=== PATIENT | male | born 1940 | race Caucasian/White ===

== ENCOUNTER 2018-02-08 11:26 | Inpatient (IN) | payer OTHER ==
[~2018-02-08] VITALS: Ht 172.7 cm; Wt 61.0 kg
[~2018-02-08 11:26] MED LIST: AMLODIPINE BESYL5 M1 PO; ANTIVERT12.5 MG PO; BAY PO; CLINDAMYCIN150 M1 PO; DEC150 PO; FLUOXETINE40 MG PO; LAC PO; LEVAQUIN750 MG PO; LOT20 PO; NOR10 PO; RITALIN5 MG PO; TAMSULOSIN HCL0.4 MG PO; TEN50 PO; TRAZODONE HYDR100 MG PO
[2018-02-08 11:33] VITALS: Ht 172.7 cm; Wt 61.0 kg
[2018-02-08 12:11] LABS: BASOPHIL % 0.4 % (0-2); PLATELET COUNT 311 x10^3mcL (130-400); RED CELL DISTRIBUTION WIDTH 14.1 % (11.5-14.5)
[2018-02-08 12:17] LABS: ALBUMIN 3.1 g/dL (3.4-5.0); ALKALINE PHOSPHATASE 78 U/L (46-116); ALT/SGPT 14 U/L (16-63); AST/SGOT 14 U/L (15-37); BILIRUBIN TOTAL 0.4 mg/dL (0.20-1.00); CALCIUM 8.4 mg/dL (8.5-10.1); CARBON DIOXIDE 26.8 mmol/L (21-32); CHLORIDE SERUM 104 mmol/L (98-107); CREATININE SERUM 0.9 mg/dL (0.7-1.3); GLUCOSE SERUM 213 mg/dL (74-106); SODIUM SERUM 140 mmol/L (136-145); TOTAL PROTEIN, SERUM 7.2 g/dL (6.4-8.2)
[2018-02-08 12:35] LABS: FREE T4 1.03 ng/dL (0.76-1.46)
[2018-02-08 12:39] LABS: UA SPECIFIC GRAVITY 1.015 (1.005-1.035); microscopic required? YES; urine erythrocyte TRACE (NEGATIVE)
[2018-02-08] MEDS ORDERED: LOMOTIL1 TAB PO (12:47)
[2018-02-08] MEDS ORDERED: LORAZEPAM0.5 MG PO (12:49)
[2018-02-08 15:41] VITALS: BP 147/76
[2018-02-08 17:24] VITALS: BP 143/86
[2018-02-08 21:36] VITALS: BP 151/83
[2018-02-09 05:48] VITALS: BP 145/75
[2018-02-09 08:03] VITALS: BP 148/80
[2018-02-09 08:35] LABS: ALKALINE PHOSPHATASE 69 U/L (46-116); ALT/SGPT 21 U/L (16-63); AST/SGOT 12 U/L (15-37); BILIRUBIN TOTAL 0.53 mg/dL (0.20-1.00); CARBON DIOXIDE 22.8 mmol/L (21-32); CHLORIDE SERUM 104 mmol/L (98-107); CREATININE SERUM 0.8 mg/dL (0.7-1.3); GLUCOSE SERUM 109 mg/dL (74-106); MAGNESIUM 1.7 mg/dL (1.8-2.4); POTASSIUM SERUM 3.4 mmol/L (3.5-5.1); SODIUM SERUM 140 mmol/L (136-145); TOTAL PROTEIN, SERUM 6.7 g/dL (6.4-8.2)
[2018-02-09 08:40] LABS: ALBUMIN 2.9 g/dL (3.4-5.0)
[2018-02-09 08:44] LABS: BASOPHIL % 0.7 % (0-2); PLATELET COUNT 284 x10^3mcL (130-400); RED CELL DISTRIBUTION WIDTH 14.3 % (11.5-14.5)
[2018-02-09 12:17] VITALS: BP 139/73
[2018-02-09 21:00] VITALS: BP 137/67
[2018-02-10 05:17] VITALS: BP 134/71
[2018-02-10 08:11] VITALS: BP 166/88
[2018-02-10 13:00] VITALS: BP 131/75
[2018-02-10 17:22] VITALS: BP 129/75
[2018-02-10 20:45] VITALS: BP 144/74
[2018-02-11 05:41] VITALS: BP 132/72
[2018-02-11 07:44] LABS: CALCIUM 8.2 mg/dL (8.5-10.1); CARBON DIOXIDE 23.8 mmol/L (21-32); CHLORIDE SERUM 108 mmol/L (98-107); CREATININE SERUM 0.9 mg/dL (0.7-1.3); GLUCOSE SERUM 98 mg/dL (74-106); MAGNESIUM 1.9 mg/dL (1.8-2.4); POTASSIUM SERUM 3.4 mmol/L (3.5-5.1); SODIUM SERUM 139 mmol/L (136-145)
[2018-02-11 08:37] LABS: BASOPHIL % 0.5 % (0-2); PLATELET COUNT 252 x10^3mcL (130-400); RED CELL DISTRIBUTION WIDTH 14.1 % (11.5-14.5)
[2018-02-11 09:05] VITALS: BP 130/59
[2018-02-11] MEDS ORDERED: FLA500 PO (10:17)
[2018-02-11 11:12] VITALS: BP 130/59
== END 2018-02-11 15:30 | disposition home health service (06) | DRG 392 ==
LOC: ED 11:26 → MU 13:54
PROVIDERS: Emergency Medicine; Internal Medicine Pulmonary Disease
DX: A08.39 Other viral enteritis (principal); E46 Unspecified protein-calorie malnutrition; E86.0 Dehydration; E87.6 Hypokalemia; I10 Essential (primary) hypertension; N40.0 Benign prostatic hyperplasia without lower urinary tract symptoms; F32.9 Major depressive disorder, single episode, unspecified; Z68.21 Body mass index [BMI] 21.0-21.9, adult; Z85.520 Personal history of malignant carcinoid tumor of kidney; Z79.82 Long term (current) use of aspirin
CPT/HCPCS: 83880; 84439; 97110-GP; 97116-GP; 97530-GP; 97535-GP; J1644; J3475; J3490; J7050; J7120; Q0092

== ENCOUNTER 2018-02-13 14:41 | Inpatient (IN) | payer OTHER ==
[~2018-02-13] VITALS: Ht 175.3 cm; Wt 69.0 kg
[~2018-02-13 14:41] MED LIST changes: +FLA500 PO; +LOMOTIL1 TAB PO; +LORAZEPAM0.5 MG PO
[2018-02-13 16:12] LABS: BASOPHIL % 0.4 % (0-2); PLATELET COUNT 292 x10^3mcL (130-400)
[2018-02-13 16:15] LABS: RED CELL DISTRIBUTION WIDTH 14.7 % (11.5-14.5)
[2018-02-13 16:25] LABS: ALKALINE PHOSPHATASE 61 U/L (46-116); ALT/SGPT 64 U/L (16-63); AMYLASE 47 U/L (25-115); AST/SGOT 55 U/L (15-37); BILIRUBIN TOTAL 0.3 mg/dL (0.20-1.00); CALCIUM 8.8 mg/dL (8.5-10.1); CARBON DIOXIDE 20.2 mmol/L (21-32); CHLORIDE SERUM 104 mmol/L (98-107); CREATININE SERUM 0.9 mg/dL (0.7-1.3); GLUCOSE SERUM 151 mg/dL (74-106); LIPASE 191 IU/L (73-393); SODIUM SERUM 139 mmol/L (136-145); TOTAL PROTEIN, SERUM 6.8 g/dL (6.4-8.2)
[2018-02-13 16:28] LABS: ALBUMIN 3.1 g/dL (3.4-5.0); POTASSIUM SERUM 2.9 mmol/L (3.5-5.1)
[2018-02-13 20:46] VITALS: BP 183/89
[2018-02-14 06:51] VITALS: BP 165/84
[2018-02-14 07:30] LABS: BASOPHIL % 0.2 % (0-2); PLATELET COUNT 286 x10^3mcL (130-400); RED CELL DISTRIBUTION WIDTH 14.5 % (11.5-14.5)
[2018-02-14 07:59] LABS: CALCIUM 8.2 mg/dL (8.5-10.1); CARBON DIOXIDE 23.1 mmol/L (21-32); CHLORIDE SERUM 104 mmol/L (98-107); CREATININE SERUM 0.8 mg/dL (0.7-1.3); GLUCOSE SERUM 112 mg/dL (74-106); MAGNESIUM 2.1 mg/dL (1.8-2.4); SODIUM SERUM 140 mmol/L (136-145)
[2018-02-14 08:02] LABS: POTASSIUM SERUM 2.7 mmol/L (3.5-5.1)
[2018-02-14 08:14] VITALS: BP 162/78
[2018-02-14 09:35] VITALS: BP 142/76
[2018-02-14 13:17] VITALS: BP 138/67
[2018-02-14 16:46] VITALS: BP 137/74
[2018-02-14 19:01] LABS: microscopic required? YES; urine erythrocyte 2+ (NEGATIVE)
[2018-02-14 22:43] VITALS: BP 135/66
[2018-02-15 06:28] VITALS: BP 128/65
[2018-02-15 06:35] LABS: BASOPHIL % 0.4 % (0-2); PLATELET COUNT 238 x10^3mcL (130-400); RED CELL DISTRIBUTION WIDTH 14.5 % (11.5-14.5)
[2018-02-15 06:48] LABS: ALKALINE PHOSPHATASE 46 U/L (46-116); ALT/SGPT 50 U/L (16-63); AST/SGOT 34 U/L (15-37); BILIRUBIN TOTAL 0.39 mg/dL (0.20-1.00); CALCIUM 8.1 mg/dL (8.5-10.1); CARBON DIOXIDE 21.5 mmol/L (21-32); CHLORIDE SERUM 112 mmol/L (98-107); CREATININE SERUM 0.8 mg/dL (0.7-1.3); GLUCOSE SERUM 90 mg/dL (74-106); POTASSIUM SERUM 4.6 mmol/L (3.5-5.1); SODIUM SERUM 140 mmol/L (136-145)
[2018-02-15 06:50] LABS: ALBUMIN 2.4 g/dL (3.4-5.0); TOTAL PROTEIN, SERUM 5.3 g/dL (6.4-8.2)
[2018-02-15 10:07] VITALS: BP 121/63
[2018-02-15 13:29] VITALS: BP 154/76
[2018-02-15 15:12] VITALS: Ht 175.3 cm; Wt 69.0 kg
[2018-02-15 18:40] VITALS: BP 150/72
[2018-02-15 21:05] VITALS: BP 177/74
[2018-02-15 22:22] VITALS: BP 152/72
[2018-02-16] VITALS (8 sets, daily range): BP systolic 129–178; BP diastolic 64–87
[2018-02-16 06:47] LABS: PLATELET COUNT 244 x10^3mcL (130-400); RED CELL DISTRIBUTION WIDTH 14.4 % (11.5-14.5)
[2018-02-16 07:23] LABS: ALKALINE PHOSPHATASE 51 U/L (46-116); ALT/SGPT 45 U/L (16-63); AST/SGOT 24 U/L (15-37); BILIRUBIN TOTAL 0.5 mg/dL (0.20-1.00); CALCIUM 7.9 mg/dL (8.5-10.1); CHLORIDE SERUM 105 mmol/L (98-107); CREATININE SERUM 0.7 mg/dL (0.7-1.3); GLUCOSE SERUM 111 mg/dL (74-106); MAGNESIUM 1.8 mg/dL (1.8-2.4); POTASSIUM SERUM 3.1 mmol/L (3.5-5.1); SODIUM SERUM 137 mmol/L (136-145)
[2018-02-16 07:33] LABS: ALBUMIN 2.5 g/dL (3.4-5.0); TOTAL PROTEIN, SERUM 5.6 g/dL (6.4-8.2)
[2018-02-16 10:27] LABS: BAND NEUTROPHIL 3 % (0-10); BASOPHIL 0 % (0-2); MONOCYTE 4 % (0-7); PLATELET MORPHOLOGY PLATELETS NORMAL; SEGMENTED NEUTROPHILS 89 % (37-75)
[2018-02-17 05:24] VITALS: BP 157/70
[2018-02-17 09:41] VITALS: BP 151/67
[2018-02-17 13:48] VITALS: BP 145/63
[2018-02-17 17:48] VITALS: BP 158/64
[2018-02-17 20:08] VITALS: BP 128/61
[2018-02-18] VITALS (7 sets, daily range): BP systolic 140–167; BP diastolic 60–81
[2018-02-18 05:43] LABS: BASOPHIL % 0.4 % (0-2); PLATELET COUNT 260 x10^3mcL (130-400)
[2018-02-18 05:46] LABS: ALKALINE PHOSPHATASE 45 U/L (46-116); ALT/SGPT 33 U/L (16-63); AST/SGOT 19 U/L (15-37); BILIRUBIN TOTAL 0.41 mg/dL (0.20-1.00); CALCIUM 7.9 mg/dL (8.5-10.1); CARBON DIOXIDE 21.8 mmol/L (21-32); CHLORIDE SERUM 108 mmol/L (98-107); CREATININE SERUM 0.9 mg/dL (0.7-1.3); GLUCOSE SERUM 105 mg/dL (74-106); MAGNESIUM 2.1 mg/dL (1.8-2.4); POTASSIUM SERUM 3.4 mmol/L (3.5-5.1); SODIUM SERUM 137 mmol/L (136-145)
[2018-02-18 05:47] LABS: ALBUMIN 2.2 g/dL (3.4-5.0); TOTAL PROTEIN, SERUM 5.5 g/dL (6.4-8.2)
[2018-02-18 06:29] LABS: RED CELL DISTRIBUTION WIDTH 14.9 % (11.5-14.5)
[2018-02-19] VITALS (7 sets, daily range): BP systolic 125–183; BP diastolic 62–80
[2018-02-19 05:59] LABS: BASOPHIL % 0.5 % (0-2); PLATELET COUNT 291 x10^3mcL (130-400)
[2018-02-19 06:08] LABS: CALCIUM 8.6 mg/dL (8.5-10.1); CARBON DIOXIDE 24.5 mmol/L (21-32); CHLORIDE SERUM 106 mmol/L (98-107); GLUCOSE SERUM 131 mg/dL (74-106); POTASSIUM SERUM 3.8 mmol/L (3.5-5.1); SODIUM SERUM 140 mmol/L (136-145)
[2018-02-19 06:14] LABS: RED CELL DISTRIBUTION WIDTH 14.6 % (11.5-14.5)
[2018-02-20 05:59] VITALS: BP 154/73
[2018-02-20 08:25] VITALS: BP 159/69
[2018-02-20 12:25] VITALS: BP 138/75
[2018-02-20 15:09] VITALS: BP 138/75
== END 2018-02-20 15:40 | disposition hospice, home (50) | DRG 871 ==
LOC: ED 14:41 → DU 19:31
PROVIDERS: Emergency Medicine; Internal Medicine; Internal Medicine Pulmonary Disease
PROC: 0WC Anatomical Regions, General, Extirpation (ICD-10-PCS; 2018-02-18)
PROC: 0DBL8ZZ Excision of Transverse Colon, Via Natural or Artificial Opening Endoscopic (ICD-10-PCS; principal; 2018-02-19 09:00)
DX: A41.9 Sepsis, unspecified organism (principal); G93.41 Metabolic encephalopathy; N13.4 Hydroureter; E44.0 Moderate protein-calorie malnutrition; R19.7 Diarrhea, unspecified; R62.7 Adult failure to thrive; N28.89 Other specified disorders of kidney and ureter; R31.9 Hematuria, unspecified; K56.41 Fecal impaction; E86.0 Dehydration; E87.6 Hypokalemia; D12.3 Benign neoplasm of transverse colon; I10 Essential (primary) hypertension; F03.90 Unspecified dementia, unspecified severity, without behavioral disturbance, psychotic disturbance, mood disturbance, and anxiety; F32.9 Major depressive disorder, single episode, unspecified; D64.9 Anemia, unspecified; Z68.23 Body mass index [BMI] 23.0-23.9, adult; Z66 Do not resuscitate
CPT/HCPCS: 83880; 97110-GP; 97116-GP; 97530-GP; J1200; J1610; J2250; J2310; J2543; J3010; J3370; J3475; J3480; J3490; J7030; J7050; Q0092; Q0162; Q9967

== ENCOUNTER 2018-06-20 22:44 | Emergency (ER) | payer OTHER ==
[~2018-06-20] VITALS: Ht 177.8 cm; Wt 72.6 kg
[2018-06-20 22:55] VITALS: Ht 177.8 cm; Wt 72.6 kg
[2018-06-20 23:47] LABS: BASOPHIL % 0.3 % (0-2); PLATELET COUNT 217 x10^3mcL (130-400); RED CELL DISTRIBUTION WIDTH 13.5 % (11.5-14.5)
[2018-06-20 23:57] LABS: CALCIUM 9.5 mg/dL (8.5-10.1); CARBON DIOXIDE 28.1 mmol/L (21-32); CHLORIDE SERUM 102 mmol/L (98-107); CREATININE SERUM 1.2 mg/dL (0.7-1.3); GLUCOSE SERUM 143 mg/dL (74-106); POTASSIUM SERUM 3.1 mmol/L (3.5-5.1); SODIUM SERUM 143 mmol/L (136-145)
[2018-06-21 00:02] LABS: ALKALINE PHOSPHATASE 77 U/L (46-116); ALT/SGPT 37 U/L (16-63); AST/SGOT 20 U/L (15-37); BILIRUBIN TOTAL 0.2 mg/dL (0.20-1.00)
[2018-06-21 00:07] LABS: ALBUMIN 3.3 g/dL (3.4-5.0)
[2018-06-21 02:05] VITALS: BP 134/70
== END 2018-06-21 02:05 | disposition home or self-care (01) ==
LOC: ED 22:44
PROVIDERS: Emergency Medicine
DX: E87.6 Hypokalemia (principal); R53.1 Weakness; I10 Essential (primary) hypertension; F32.9 Major depressive disorder, single episode, unspecified; E78.00 Pure hypercholesterolemia, unspecified; F03.90 Unspecified dementia, unspecified severity, without behavioral disturbance, psychotic disturbance, mood disturbance, and anxiety; Z90.49 Acquired absence of other specified parts of digestive tract
CPT/HCPCS: 36415; Q0092